=== PATIENT | female | born 1975 | race Asian ===

== ENCOUNTER 2018-08-02 09:23 | Emergency (ER) | payer BC, OTHER ==
[2018-08-02 09:41] VITALS: BP 101/45
--- NOTE | 2018-08-02 10:03 | RAD ---
HISTORY: ROLLED THIS MORNING, PAIN, CAN NOT WEIGHT BEAR COMPARISONS: None VIEWS: 4 , Frontal, lateral, and oblique views of the right ankle FINDINGS: BONE DENSITY: Normal. BONES: There are well-corticated bone fragments of the medial malleolus suggestive of remote avulsion injury. 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 There is a small joint effusion. ALIGNMENT: There is no dislocation. SOFT TISSUES: There is mild circumferential soft tissue swelling. OTHER FINDINGS: None. IMPRESSION: 1. DEGENERATIVE CHANGES. 2. SMALL JOINT EFFUSION. 3. SOFT TISSUE SWELLING. 4. NO ACUTE OSSEOUS INJURY. IF SYMPTOMS PERSIST, RECOMMEND REPEAT IMAGING.
--- NOTE | 2018-08-02 10:25 | UC ---
Lower Extremity/Ankle HPI - HPI Summary HPI Summary: Was running this morning when she rolled her right ankle. Has sprained this ankle in the past. Is able to weight-bear but with a lot of discomfort. - History of Current Complaint Chief Complaint: UCLowerExtremity Stated Complaint: R ANKLE INJURY Time Seen by Provider: 08/02/18 09:42 Hx Obtained From: Patient Hx Last Menstrual Period: 07/20/18 Onset/Duration: Sudden Onset, Lasting Hours, Still Present Severity Initially: Moderate Severity Currently: Moderate Pain Intensity: 5 Pain Scale Used: 0-10 Numeric Aggravating Factor(s): Standing, Ambulation Alleviating Factor(s): Rest, Elevation Able to Bear Weight: Yes - WITH PAIN - Allergies/Home Medications Allergies/Adverse Reactions: Allergies Allergy/AdvReac Type Severity Reaction Status Date / Time No Known Allergies Allergy Verified 08/02/18 09:32 PMH/Surg Hx/FS Hx/Imm Hx Psychological History: Anxiety, Depression - Surgical History Surgical History: None - Family History Known Family History: Positive: Unknown - pt is adopted - Social History Alcohol Use: None Alcohol Amount: History of alcohol use: last use 7 years ago Substance Use Type: None Smoking Status (MU): Former Smoker Have You Smoked in the Last Year: No When Did the Patient Quit Smoking/Using Tobacco: 15 years ago - Immunization History Most Recent Influenza Vaccination: up to date Most Recent Tetanus Shot: up to date Most Recent Pneumonia Vaccination: none Review of Systems Constitutional: Negative Respiratory: Negative Cardiovascular: Negative Gastrointestinal: Negative Musculoskeletal: Arthralgia, Decreased ROM, Edema All Other Systems Reviewed And Are Negative: Yes Physical Exam Triage Information Reviewed: Yes Appearance: Well-Appearing, No Pain Distress, Well-Nourished Vital Signs: Initial Vital Signs Temp 97.5 F 08/02/18 09:32 Pulse 62 08/02/18 09:32 Resp 18 08/02/18 09:32 BP 101/45 08/02/18 09:32 Pulse Ox 99 08/02/18 09:32 Vital Signs Reviewed: Yes Eyes: Positive: Conjunctiva Clear ENT: Positive: Hearing grossly normal Neck: Positive: Supple Respiratory: Positive: No respiratory distress, No accessory muscle use Cardiovascular: Positive: Pulses Normal Abdomen Description: Positive: Soft Musculoskeletal: Positive: ROM Limited @ - RIGHT ANKLE, Edema @ - RIGHT ANKLE LATERALLY, Other: - TTP RIGHT ANKLE LATERAL MALLEOLUS Neurological: Positive: Alert Psychological: Positive: Age Appropriate Behavior Skin: Negative: rashes Diagnostics - Radiology RIGHT ANKLE XRAY Xray Interpretation: Positive (See Comments) - SOFT TISSUE SWELLING, SMALL EFFUSION, DEGENERATIVE CHANGES Radiology Interpretation Completed By: Radiologist Lower Extremity Course/Dx - Differential Dx/Diagnosis Provider Diagnoses: RIGHT ANKLE SPRAIN Discharge - Sign-Out/Discharge Documenting (check all that apply): Patient Departure All imaging exams completed and their final reports reviewed: Yes - Discharge Plan Condition: Stable Disposition: HOME Patient Education Materials: Ankle Sprain (ED) Referrals: Cydney Chin MD [Primary Care Provider] - If Needed Additional Instructions: XRAY TODAY NEGATIVE FOR FRACTURE OR DISLOCATION. YOUR SYMPTOMS SHOULD IMPROVE SIGNIFICANTLY OVER THE NEXT 1-2 WEEKS. IF YOU DO NOT IMPROVE EXPECTED FOLLOW- UP WITH YOUR PCP. YOU MAY BENEFIT FROM REPEAT IMAGING AT THAT TIME. OTC IBUPROFEN OR ALEVE NEEDED FOR DISCOMFORT. REST, ICE, COMPRESS, ELEVATE. MAURICIO WRAP AND SPLINT NEEDED FOR SYMPTOM RELIEF. IBUPROFEN MAX DOSE: 600MG (3 TABS) EVERY 6 HRS OR 800MG (4 TABS) EVERY 8 HRS OR NAPROXEN MAX DOSE: 440MG (2 TABS) EVERY 12 HRS TYLENOL MAX DOSE: 1000MG (2 EXTRA STRENGTH TABS) EVERY 8 HRS OR 650MG (2 REGULAR TABS) EVERY 6 HRS - Billing Disposition and Condition Condition: STABLE Disposition: Home
== END 2018-08-02 10:58 | disposition home or self-care (01) ==
LOC: UCEAST 09:23
DX: S93.401A Sprain of unspecified ligament of right ankle, initial encounter (principal); X50.1XXA Overexertion from prolonged static or awkward postures, initial encounter; Y93.02 Activity, running; Y92.9 Unspecified place or not applicable; Z87.891 Personal history of nicotine dependence
CPT/HCPCS: 99213; G0463

== ENCOUNTER 2018-08-11 10:07 | Emergency (ER) | payer BC, OTHER ==
[2018-08-11 10:14] VITALS: BP 111/70
--- NOTE | 2018-08-11 10:16 | UC ---
Lower Extremity/Ankle HPI - HPI Summary HPI Summary: 43 yo female presents with right ankle pain. She was seen here on 08/02 and an XR was negative and dx'd with a sprain. Since that time she is still having pain and swelling to the ankle. Has been using the gel ankle splint and MAURICIO wrap as much as possible. Denies new injury. - History of Current Complaint Chief Complaint: UCLowerExtremity Stated Complaint: R FOOT/ANKLE INJURY Time Seen by Provider: 08/11/18 10:15 Hx Obtained From: Patient Hx Last Menstrual Period: 07/18/18 Severity Initially: Moderate Severity Currently: Moderate Pain Intensity: 6 Pain Scale Used: 0-10 Numeric Aggravating Factor(s): Standing, Ambulation Able to Bear Weight: Yes - Allergies/Home Medications Allergies/Adverse Reactions: Allergies Allergy/AdvReac Type Severity Reaction Status Date / Time No Known Allergies Allergy Verified 08/11/18 10:10 PMH/Surg Hx/FS Hx/Imm Hx Psychological History: Anxiety, Depression - Surgical History Surgical History: None - Family History Known Family History: Positive: Unknown - pt is adopted - Social History Occupation: Employed Full-time Lives: With Family Alcohol Use: None Alcohol Amount: History of alcohol use: last use 7 years ago Substance Use Type: None Smoking Status (MU): Former Smoker Have You Smoked in the Last Year: No When Did the Patient Quit Smoking/Using Tobacco: 15 years ago - Immunization History Most Recent Influenza Vaccination: up to date Most Recent Tetanus Shot: up to date Most Recent Pneumonia Vaccination: none Review of Systems Constitutional: Negative Skin: Negative Respiratory: Negative Cardiovascular: Negative Musculoskeletal: Other: - Right ankle pain Neurological: Negative Psychological: Negative All Other Systems Reviewed And Are Negative: Yes Physical Exam - Summary Physical Exam Summary: GENERAL: NAD. WDWN. No pain distress. SKIN: No rashes, sores, lesions, or open wounds. CHEST: No accessory muscle use. Breathing comfortably and in no distress. CV: Pulses intact PT and DP. Cap refill <2seconds MSK: RIGHT ANKLE: Moderate edema and ecchymosis about lateral malleolus with mild TTP here. FROM. Strength 5/5. Negative talar tilt. No increased laxity. NEURO: Alert. Sensations intact and symmetric B/L LEs PSYCH: Age appropriate behavior. Triage Information Reviewed: Yes Vital Signs: Initial Vital Signs Temp 97.9 F 08/11/18 10:11 Pulse 63 08/11/18 10:11 Resp 16 08/11/18 10:11 BP 111/70 08/11/18 10:11 Pulse Ox 100 08/11/18 10:11 Vital Signs Reviewed: Yes Lower Extremity Course/Dx - Course Course Of Treatment: Pt declined repeat XR today. Will have her continue to use the ankle splint and MAURICIO wrap. Will have her f/u with Sports Medicine as soon as possible for further eval. - Differential Dx/Diagnosis Provider Diagnoses: Right ankle pain Discharge - Sign-Out/Discharge Documenting (check all that apply): Patient Departure All imaging exams completed and their final reports reviewed: No Studies - Discharge Plan Condition: Stable Disposition: HOME Patient Education Materials: Ankle Sprain (DC) Referrals: Cydney Chin MD [Primary Care Provider] - [facility] [Provider Group] - As Soon As Possible Additional Instructions: If you develop a fever, shortness of breath, chest pain, new or worsening symptoms - please call your PCP or go to the ED. 1) Please rest, ice, and elevate your ankle as much as possible 2) Please call Sports Medicine at the number below the schedule a follow up appointment as soon as possible - Billing Disposition and Condition Condition: STABLE Disposition: Home
== END 2018-08-11 10:35 | disposition home or self-care (01) ==
LOC: UCEAST 10:07
DX: M25.571 Pain in right ankle and joints of right foot (principal); Z87.891 Personal history of nicotine dependence
CPT/HCPCS: 99211; G0463

== ENCOUNTER 2019-04-03 14:23 | Inpatient (IN) | payer OTHER ==
[2019-04-03 15:27] LABS: ABS Eosinophils 0.3 10^3/ul (0-0.6); ABS Lymphocytes 1.4 10^3/ul (1.0-4.8); ABS Monocytes 0.7 10^3/ul (0-0.8); ABS Neutrophils 5.7 10^3/ul (1.5-7.7); Eosinophil % 3.4 %; Hematocrit 41 % (35-47); Hemoglobin 13.9 g/dL (12.0-16.0); Lymphocyte % 17.2 %; Mean Corpuscular HGB Conc 34 g/dL (31-36); Mean Corpuscular Hemoglobin 31 pg (27-31); Mean Corpuscular Volume 94 fL (80-97); Mean Platelet Volume 7.4 fL (7.4-10.4); Platelet Count 344 10^3/uL (150-450); Red Blood Count 4.43 10^6 /uL (3.70-4.87); Red Cell Distribution Width 12 % (10.5-15); White Blood Count 8.1 10^3/uL (3.5-10.8)
--- NOTE | 2019-04-03 15:34 | ED ---
Psychiatric Complaint - HPI Summary HPI Summary: 43-year-old female presents for mental health evaluation today. States she's been more and more depressed. She she states that she just doesn't feel like living but has no definite plan. She denies any homicidal ideation. She should stop smoking pot on . She denies any drug use otherwise. She states she's been trying to increase her lithium but it is not working. She saw her therapist who advised her to come here. - History Of Current Complaint Chief Complaint: EDSubstanceAbuse Time Seen by Provider: 04/03/19 14:52 Hx Last Menstrual Period: 07/18/18 - Allergies/Home Medications Allergies/Adverse Reactions: Allergies Allergy/AdvReac Type Severity Reaction Status Date / Time No Known Allergies Allergy Verified 09/23/18 09:38 Home Medications: Home Medications [place] Carbonate 150 mg PO TID 04/03/19 [History Confirmed 04/03/19] Propranolol TAB* [Inderal TAB*] 10 mg PO DAILY PRN 04/03/19 [History Confirmed 04/03/19] PMH/Surg Hx/FS Hx/Imm Hx Endocrine/Hematology History: Denies: Hx Diabetes, Hx Thyroid Disease Cardiovascular History: Denies: Hx Hypertension, Hx Pacemaker/ICD Respiratory History: Denies: Hx Asthma, Hx Chronic Obstructive Pulmonary Disease (COPD) GI History: Denies: Hx Ulcer History: Denies: Hx Renal Disease Sensory History: Denies: Hx Hearing Aid Neurological History: Reports: Hx Migraine Psychiatric History: Reports: Hx Anxiety, Hx Depression, Hx Inpatient Treatment , Hx Community Mental Health Tx, Hx Suicide Attempt, Hx Substance Abuse Denies: Hx Eating Disorder, Hx Panic Disorder, Hx of Violent Episodes Against Others - Surgical History Surgery Procedure, Year, and Place: DENIES Infectious Disease History: No Infectious Disease History: Denies: Hx Clostridium Difficile, Hx Hepatitis, Hx Human Immunodeficiency Virus (HIV), Hx of Known/Suspected MRSA, Hx Shingles, Hx Tuberculosis, Hx Known/ Suspected VRE, Hx Known/Suspected VRSA, History Other Infectious Disease, Traveled Outside the [place] in Last 30 Days - Family History Known Family History: Positive: Unknown - pt is adopted - Social History Alcohol Use: None Alcohol Amount: History of alcohol use: last use 7 years ago Substance Use Type: Reports: Marijuana Smoking Status (MU): Former Smoker Have You Smoked in the Last Year: No Review of Systems Negative: Fever Negative: Chest Pain Negative: Shortness Of Breath Positive: Depressed All Other Systems Reviewed And Are Negative: Yes Physical Exam Triage Information Reviewed: Yes Vital Signs On Initial Exam: Initial Vitals Temp Pulse Resp BP Pulse Ox 97.8 F 58 18 121/70 98 04/03/19 14:27 04/03/19 14:27 04/03/19 14:27 04/03/19 14:27 04/03/19 14:27 Vital Signs Reviewed: Yes Appearance: Positive: Well-Appearing Skin: Positive: Warm, Dry Head/Face: Positive: Normal Head/Face Inspection Eyes: Positive: Normal, EOMI, RAVI, Conjunctiva Clear ENT: Positive: Pharynx normal Respiratory/Lung Sounds: Positive: Clear to Auscultation, Breath Sounds Present Cardiovascular: Positive: Normal, RRR Musculoskeletal: Positive: Normal Neurological: Positive: Normal Psychiatric: Positive: Depressed Diagnostics - Vital Signs Vital Signs Temp Pulse Resp BP Pulse Ox 04/03/19 14:27 97.8 F 58 18 121/70 98 - Laboratory Lab Results: Lab Results 04/03/19 Range/Units 15:11 WBC 8.1 (3.5-10.8) 10^3/uL RBC 4.43 (3.70-4.87) 10^6 /uL Hgb 13.9 (12.0-16.0) g/dL Hct 41 (35-47) % MCV 94 (80-97) fL MCH 31 (27-31) pg MCHC 34 (31-36) g/dL RDW 12 (10.5-15) % Plt Count 344 (150-450) 10^3/uL MPV 7.4 (7.4-10.4) fL Neut % (Auto) 70.5 % Lymph % (Auto) 17.2 % [place] % (Auto) 8.3 % Eos % (Auto) 3.4 % Baso % (Auto) 0.6 % Absolute Neuts (auto) 5.7 (1.5-7.7) 10^3/ul Absolute Lymphs (auto) 1.4 (1.0-4.8) 10^3/ul Absolute Monos (auto) 0.7 (0-0.8) 10^3/ul Absolute Eos (auto) 0.3 (0-0.6) 10^3/ul Absolute Basos (auto) 0.0 (0-0.2) 10^3/ul Absolute Nucleated RBC 0.0 10^3/ul Nucleated RBC % 0.0 Result Diagrams: 04/03/19 15:11 04/03/19 15:11 Lab Statement: Any lab studies that have been ordered have been reviewed, and results considered in the medical decision making process. Course/Dx - Course Course Of Treatment: 43-year-old female presents for mental health evaluation today. States she's been more and more depressed. She she states that she just doesn't feel like living but has no definite plan. She denies any homicidal ideation. She should stop smoking pot on . She denies any drug use otherwise. She states she's been trying to increase her lithium but it is not working. She saw her therapist who advised her to come here. On exam has normal physical exam. Medically cleared for mental health. after mental health evaulation patient will be admitted for diagnosis of depression per dr srivastava - Differential Dx/Clinical Impression Differential Diagnosis/HQI/PQRI: Positive: Anxiety, Depression, Suicidal Ideation Provider Diagnosis: Depression Discharge - Sign-Out/Discharge Documenting (check all that apply): Patient Departure - Discharge Plan Condition: Stable [place] [place]errals: Cydney Chin MD [Primary Care Provider] - - Billing Disposition and Condition Condition: STABLE Disposition[place] [facility] [place]
[2019-04-03 15:43] LABS: Urine Appearance Cloudy; Urine Bacteria 1+ (Absent); Urine Bilirubin Negative (Negative); Urine Blood 1+ (Negative); Urine Color Straw; Urine Glucose Negative (Negative); Urine Ketones Negative (Negative); Urine Nitrite Negative (Negative); Urine Protein Negative (Negative); Urine Red Blood Cell Absent (Absent); Urine Specific Gravity 1.004 (1.010-1.030); Urine Squamous Epithelial Cell Present (Absent); Urine Urobilinogen Negative (Negative); Urine White Blood Cell Absent (Absent)
[2019-04-03 16:51] LABS: Alcohol < 10 mg/dL (<10); Salicylate < 2.50 mg/dL (<30); TSH (Thyroid Stimulating Horm) 1.45 mcIU/mL (0.34-5.60)
[2019-04-03 17:02] LABS: Urine Benzodiazepine Screen None Detected (None Detect); Urine Opiates Screen None Detected (None Detect)
[2019-04-03 17:38] LABS: Acetaminophen < 15 mcg/mL
[2019-04-03 17:40] LABS: Anion Gap 4 mmol/L (2-11); BUN/Creatinine Ratio 15.8 (8-20); Blood Urea Nitrogen 12 mg/dL (6-24); CO2 Carbon Dioxide 27 mmol/L (22-32); Calcium 9.9 mg/dL (8.6-10.3); Chloride 106 mmol/L (101-111); EGFR African American 101.5 (>60); EGFR Non-African American 83.9 (>60); Glucose 90 mg/dL (70-100); Potassium 5.4 mmol/L (3.5-5.0); Sodium 137 mmol/L (135-145)
[2019-04-03 17:41] LABS: ALT 55 U/L (7-52); AST 47 U/L (13-39); Albumin 4.8 g/dL (3.2-5.2); Albumin/Globulin Ratio 1.7 (1-3); Alkaline Phosphatase 51 U/L (34-104); Globulin 2.8 g/dL (2-4); Total Protein 7.6 g/dL (6.4-8.9)
[2019-04-03] MEDS ORDERED: Ibuprofen TAB* 600 MG PO ONE (18:10)
[2019-04-04] MEDS ORDERED: Al Hydrox/Mg Hydrox/Simet LIQ* 30 ML UDC PO PRN (00:20)
[2019-04-04] MEDS ORDERED: Acetaminophen TAB* 325 MG PO PRN (00:20)
[2019-04-04] MEDS ORDERED: Propranolol TAB* 10 MG PO PRN (00:21)
[2019-04-04 08:27] LABS: Cholesterol 217 mg/dL; HDL Cholesterol 71.7 mg/dL; LDL Cholesterol 129 mg/dL; Triglycerides 83 mg/dL
[2019-04-04 08:31] LABS: HCG Pregnancy < 0.60 mIU/mL
[2019-04-04] MEDS: Vitamin THERAPEUTIC TAB PO SCH (08:37)
[2019-04-04] MEDS ORDERED: CMCS: Venlafaxine TAB (NF) 25 MG TAB PO SCH (09:00)
[2019-04-04 10:19] LABS: Lithium 0.13 mmol/L (0.6-1.2)
[2019-04-04] MEDS: Gabapentin CAP(*) 100 MG PO SCH (20:14)
[2019-04-04] MEDS: Lithium Carbonate TAB* 300 MG PO SCH (20:14)
[2019-04-04] MEDS ORDERED: Venlafaxine EXT RELEASE CAP* 37.5 MG PO ONE (21:00)
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
[2019-04-05] MEDS: Vitamin THERAPEUTIC TAB PO SCH (09:26)
[2019-04-05] MEDS: Lithium Carbonate TAB* 300 MG PO SCH ×2 (09:26→20:16)
[2019-04-05] MEDS ORDERED: Venlafaxine EXT RELEASE CAP* 37.5 MG PO ONE (15:23)
--- NOTE | 2019-04-05 16:17 | PN ---
Subjective - Subjective Date of Service: 04/05/19 Service Type: 13760 Hosp care 35 min high complexity Subjective: Alicia continues to have obsessive-type thoughts regarding her medications and their timing and dosage. She is tearful at times and highly anxious regarding her medications and we have a long discussion regarding how she will have to relinquish some control over her medications and use anxiety-reducing techniques to allow herself to overcome her fear of side effects, perhaps by acknowledging the desired effects' benefits. Objective - General Observations Appearance: Neat, Well Groomed Appears Stated Age: No - younger Stature: Thin Posture: WNL, Tense Eye Contact: Average Behavior/Activity: WNL - Interaction Observations Attitude Towards Examiner: Cooperative, Anxious Stated Mood: Dysphoric, Anxious Affect: Full Speech Pattern/Tone: Clear, Rambling Thought Process: Coherent Perception: WNL Thought Content: WNL Thought Process: Lethality: Passive Wish Hallucination Type: None Delusion Type: None - Cognitive Function Orientation: A&O x 4 Level of Consciousness: Awake, Alert, Appropriate Cognition: WNL Estimated Intelligence: Above Normal Insight: Difficulty Acknowledging Presence of Psyciatric Problems Judgment Within Normal Limits: Yes Ability to Make Reasonable Decisions: Mildly Impaired - Medication Compliance Cooperative with Inpatient Medication Regimen: Yes - Group Participation Participates in Group Activities: Yes Assessment - Assessment Merits Inpatient Hospitalization: For Immediate Safety Clinical Impression: Christin is a 43-year-old Yi-[place] woman who comes to the hospital after having increasingly severe suicidal thoughts with plans to end her life. Plan - Plan Treatment Plan: Name: ALICIA FRANCISCO Birthdate: 1975 [id number] We are starting Christin on steady doses of gabapentin 100 mg QHS, lithium 300 mg BID, and Effexor XR 37.5 mg daily. Continued Medication Management: Different Medication Medications: Current Medications Acetaminophen (Tylenol Tab*) 650 mg PO Q4H PRN PRN Reason: PAIN or TEMP > 101 F Al Hydrox/Mg Hydrox/Simethicone (Maalox Plus*) 30 ml PO Q4H PRN PRN Reason: INDIGESTION Gabapentin (Neurontin Cap(*)) 100 mg PO BEDTIME KENDALL Last Admin: 04/04/19 20:14 Dose: 100 mg [place] Carbonate (B[place] Carbonate Tab*) 300 mg PO BID KENDALL Last Admin: 04/05/19 09:26 Dose: 300 mg Multivitamins (Theragran Tab*) 1 tab PO DAILY KENDALL Last Admin: 04/05/19 09:26 Dose: 1 tab Propranolol HCl (Inderal Tab*) 10 mg PO DAILY PRN PRN Reason: MD DISCRETION Last Admin: 04/04/19 07:37 Dose: 10 mg Venlafaxine HCl (Effexor Xr Cap*) 37.5 mg PO DAILY KENDALL
[2019-04-05] MEDS: Gabapentin CAP(*) 100 MG PO SCH (20:16)
[2019-04-05] MEDS ORDERED: Venlafaxine EXT RELEASE CAP* 75 MG PO SCH (21:00)
[2019-04-06] MEDS: Venlafaxine EXT RELEASE CAP* 37.5 MG PO SCH (09:02)
[2019-04-06] MEDS: Lithium Carbonate TAB* 300 MG PO SCH ×2 (09:02→20:44)
[2019-04-06] MEDS: Vitamin THERAPEUTIC TAB PO SCH (09:02)
--- NOTE | 2019-04-06 11:49 | PN ---
BSU: Group Therapy Note - Service Type Service Type: 50114 Group Psychotherapy - Cognitive Behavioral Group Therapy ( CBT):Patient was attentive and participatory in CBT programming this morning, and remained in good behavioral control. Patient expressed positive insights regarding relevant treatment interventions and goals.
[2019-04-06] MEDS ORDERED: Venlafaxine EXT RELEASE CAP* 37.5 MG PO SCH (16:00)
--- NOTE | 2019-04-06 16:42 | PN ---
Subjective - Subjective Date of Service: 04/06/19 Service Type: 76403 Hosp care 35 min high complexity Subjective: Christin is preparing for discharge tomorrow. She states she is feeling better and thinking hard about her aversion to medication and her desire to consistently change medications. She talks about having a different point of view and having the different view encouraged by her friends who she trusts. Medications stay the same today and she is tolerating the medications well. Objective - General Observations Appearance: Neat, Well Groomed Appears Stated Age: No - younger Stature: Thin Posture: WNL, Tense Eye Contact: Average Behavior/Activity: WNL - Interaction Observations Attitude Towards Examiner: Cooperative, Anxious Stated Mood: Dysphoric Affect: Bright Speech Pattern/Tone: Clear Thought Process: Coherent Perception: WNL Thought Content: Preoccupation/Ruminations Hallucination Type: None Delusion Type: None - Cognitive Function Orientation: A&O x 4 Level of Consciousness: Awake, Alert, Appropriate Cognition: WNL Estimated Intelligence: Above Normal Insight: WNL Judgment Within Normal Limits: Yes - Medication Compliance Cooperative with Inpatient Medication Regimen: Yes - Group Participation Participates in Group Activities: Yes Assessment - Assessment Merits Inpatient Hospitalization: For Immediate Safety, For Discharge Planning Inpatient DSM-V Dx: F33.1 Clinical Impression: Christin is a 43-year-old [place] woman who comes to the hospital after having increasingly severe suicidal thoughts with plans to end her life. Plan - Plan Treatment Plan: Name: JACK FRANCISCO Birthdate: 1975 [id number] We are starting Christin on steady doses of gabapentin 100 mg QHS, lithium 300 mg BID, and Effexor XR 37.5 mg daily. 04/06/19 Christin is now stable on medications and dosages. She agrees to continue these until she sees Dr. Trent and to adhere to Dr. Trent's suggestions. Medications: Current Medications Acetaminophen (Tylenol Tab*) 650 mg PO Q4H PRN PRN Reason: PAIN or TEMP > 101 F Al Hydrox/Mg Hydrox/Simethicone (Maalox Plus*) 30 ml PO Q4H PRN PRN Reason: INDIGESTION Gabapentin (Neurontin Cap(*)) 100 mg PO BEDTIME [facility] Last Admin: 04/05/19 20:16 Dose: 100 mg [place] Carbonate ([place] Carbonate Tab*) 300 mg PO BID [facility] Last Admin: 04/06/19 09:02 Dose: 300 mg Multivitamins (Theragran Tab*) 1 tab PO DAILY [facility] Last Admin: 04/06/19 09:02 Dose: 1 tab Propranolol HCl (Inderal Tab*) 10 mg PO DAILY PRN PRN Reason: MD DISCRETION Last Admin: 04/04/19 07:37 Dose: 10 mg Venlafaxine HCl (Effexor Xr Cap*) 37.5 mg PO DAILY [facility] Last Admin: 04/06/19 09:02 Dose: 37.5 mg - Discharge Plan Discharge Plan: [facility]
[2019-04-06] MEDS: Gabapentin CAP(*) 100 MG PO SCH (20:44)
[2019-04-07] MEDS: Lithium Carbonate TAB* 300 MG PO SCH (09:00)
[2019-04-07] MEDS: Venlafaxine EXT RELEASE CAP* 37.5 MG PO SCH (09:00)
[2019-04-07] MEDS: Vitamin THERAPEUTIC TAB PO SCH (09:00)
[2019-04-07 09:33] VITALS: BP 107/60
--- NOTE | 2019-04-07 11:21 | PN ---
BSU: Group Therapy Note - Service Type Service Type: 84117 Group Psychotherapy - Cognitive Behavioral Group Therapy ( CBT):Patient was attentive and participatory in CBT programming this morning, and remained in good behavioral control. Patient expressed positive insights regarding relevant treatment interventions and goals.
== END 2019-04-07 13:10 | disposition home or self-care (01) | DRG 751 ==
LOC: ED 14:23 → BSU 23:39
PROVIDERS: ADMIT Psychiatry & Neurology Psychiatry; ATTEND Psychiatry & Neurology Psychiatry
DX: F33.1 Major depressive disorder, recurrent, moderate (principal); R45.851 Suicidal ideations; F12.90 Cannabis use, unspecified, uncomplicated; F41.9 Anxiety disorder, unspecified; Z79.899 Other long term (current) drug therapy
CPT/HCPCS: 36415; 80053; 80061; 80178; 80307; 80320; 80329; 81003; 81015; 83036; 84443; 84702; 85025; 87086; 90853; 99222; 99233; 99238; 99284; A9270-GY; G0480